=== PATIENT | female | born 1965 | race African-American/Black ===

== ENCOUNTER → 2017-07-23 21:57 | Outpatient (CLI) | payer MEDICAID | END | disposition home or self-care (01) | LOC: D.MAMMO 16:15 | DX: Z12.31 Encounter for screening mammogram for malignant neoplasm of breast (principal) ==

== ENCOUNTER 2019-07-22 08:00 | Outpatient (CLI) | payer MEDICAID | END 2019-07-22 23:59 | disposition home or self-care (01) | LOC: D.MAMMO 08:00 | PROVIDERS: ATTEND Family Medicine | DX: Z12.31 Encounter for screening mammogram for malignant neoplasm of breast (principal) ==

== ENCOUNTER → 2019-08-12 14:02 | Outpatient (CLI) | payer MEDICAID | END | disposition home or self-care (01) | LOC: D.US 14:02 | PROVIDERS: ATTEND Internal Medicine Interventional Cardiology | DX: R09.89 Other specified symptoms and signs involving the circulatory and respiratory systems (principal) ==

== ENCOUNTER → 2019-08-25 13:31 | Outpatient (CLI) | payer MEDICAID ==
--- NOTE | 2019-08-26 12:01 | EC ---
PATIENT:SONNY CROCKER DATE OF SERVICE: 08/25/19 SEX: F MEDICAL RECORD: [id number] DATE OF : 69 LOCATION:[facility] AGE OF PATIENT: 54 ADMISSION DATE: 08/25/19 REFERRING PHYSICIAN: INTERPRETING PHYSICIAN: ALONZO FLETCHER MD ECHOCARDIOGRAM REPORT ECHO CHARGES 4 ECHO COMPLETE Date: 08/25/19 CLINICAL DIAGNOSIS: ANGINA/CP/MURMUR H/O HTN ECHOCARDIOGRAPHIC MEASUREMENTS (adult normal given) AC root (d.<3.7cm) 2.9 cm LV Septum d (<1.2 cm> 1.3 cm Valve Excursion 1.8 cm LV Septum (systole) 1.9 cm Left Atria (s.<4.0cm> 4.4 cm LVPW d(<1.2cm) 1.2 cm RV (d.<2.3cm) 2.8 cm LVPW (sytole) 1.9 cm LV diastole(<5.6CM) 4.5 cm MV E-F(>70mm/sec) cm LV systole 2.5 cm LVOT Diameter 1.9 cm MV exc.(>10mm) cm Est.ejection fraction (50-75%) % DOPPLER: LVIT cm/sec A 82.0 cm/sec E 60.0 cm/sec LA cm/sec RVSP 15.0 mmHg LVOT 91.0 cm/sec AOP1/2T m/s Asc. Ao 120 cm/sec RVOT 40.0 cm/sec RA cm/sec PA 64.0 cm/sec AV Gradient Peak 5.8 mmHg AV Mean 3.0 mmHg AV Area 1.8 cm MV Gradient Peak 3.0 mmHg MV Mean 1.1 mmHg MV Area cm COMMENTS: OP - HC Vice President Compliance: 1 MICAH PITO Supervisor Rose Grading: 3 Dr. Crockett TAPE# PACS Pericardial Effusion N DATE OF SERVICE: Adequate 2D, color-flow and spectral Doppler, and M-mode. No LVH. LV internal dimensions are normal. Wall motion is normal. EF is greater than or equal to 55%. Aortic valve is tricuspid. No evidence of stenosis by Doppler interrogation. Left atrium is dilated at 4.4 cm. Mitral valve shows no prolapse. Trace MR. Right-sided chambers are grossly normal. Trace TR. ECHOCARDIOGRAM REPORT [id number] SONNY CROCKER TRANSINT:[id number] Voice Confirmation ID: [id number] DOCUMENT ID: [id number] ALONZO FLETCHER MD at 1201 CC: [id number] DICTATION DATE: 08/25/19 162 HAND CANDLE DIPPER: 08/25/[id number] DEP CLI 08/25/19 [facility] [address] [id number]
--- NOTE | 2019-09-06 08:48 | ST ---
PATIENT:SONNY CROCKER MEDICAL RECORD: [id number] SEX: F LOCATION:[facility] ORDER #: ADMISSION DATE: 08/25/19 AGE OF PATIENT: 54 REFERRING PHYSICIAN: INTERPRETING PHYSICIAN: ALONZO FLETCHER MD DATE OF SERVICE: 08/25/2019 Treadmill Stress Test Exercised for 8 minutes 36 seconds on Delio protocol. Maximum heart rate 155 beats per minute, greater than 85% maximum predicted. No ECG changes of ischemia. No symptoms of ischemia. Normal blood pressure response to exercise. No arrhythmias noted. Fairly good exercise tolerance for age. TRANSINT:[id number] Voice Confirmation ID: [id number] DOCUMENT ID: [id number] ALONZO FLETCHER MD at 0848 CC: [id number] DICTATION DATE: 09/01/19 140 LOSS PREVENTION SUPERVISOR: 09/01/192101 DEP CLI 08/25/19 [id number] [place] [address]
== END | disposition home or self-care (01) ==
LOC: D.HCCECHO 13:31
PROVIDERS: ATTEND Internal Medicine Interventional Cardiology
DX: R01.1 Cardiac murmur, unspecified (principal); I20.9 Angina pectoris, unspecified

== ENCOUNTER 2019-09-21 09:00 | Outpatient (CLI) | payer MEDICAID | END 2019-09-21 10:00 | disposition home or self-care (01) | LOC: D.MAMMO 09:00 | PROVIDERS: ATTEND Family Medicine | DX: R92.8 Other abnormal and inconclusive findings on diagnostic imaging of breast (principal) ==